=== PATIENT | female | born 1940 | race Hispanic/Latino ===

== ENCOUNTER 2017-03-03 16:55 | Inpatient (IN) | payer MEDICARE ==
[2017-03-03 23:12] VITALS: BMI 29.8
--- NOTE | 2017-03-04 00:19 | CP.PCM.HP ---
History of Present Illness - History of Present Illness History of Present Illness: PCP: Dr. Mahmood Orthopedist: Pj Mays MD Chief Complaint: Painful Right Total Hip Replacement HPI: 77 years old female with hx of CAD with stent, DM II, PVD and Degenerative joint disease of the right hip was sent to the [facility] for Physical therapy and continued care. She was admitted at the [facility] on 03/01/17 for an elective Right THR. She tolerated this well and on 03/03/17 was transferred for continue of care. She referred moderate to severe pain to the right hip on mobilization. no fever, chills, Chest pain nor Sob. No nausea nor vomiting. PMH: DM II, HTN; CAD with stent placement 2014; Hypothyroidism; PVD s/p left iliac stent; Dizziness; Shingles; Degenerative joint disease of the right hip; Arthritis; Bulging lumbar disc, Anemia PSH: Right Total Hip replacement 02/2017 SH: former smoker; occasional Alcohol; No illegal drug use; Live alone FH: States, no known familh Hx Allergies: Lisinopril Present on Admission - Present on Admission Any Indicators Present on Admission: No History of DVT/PE: No History of Uncontrolled Diabetes: No Urinary Catheter: No Decubitus Ulcer Present: No Review of Systems - Constitutional Constitutional: absent: Anorexia, Chills, Fatigue, Fever - EENT Eyes: Requires Corrective Lenses. absent: Diplopia, Floaters, Sees Flashes Ears: absent: Decreased Hearing, Ear Discharge, Ear Pain, Tinnitus Nose/Mouth/Throat: absent: Epistaxis, Nasal Congestion, Nasal Discharge, Sinus Pain, Sinus Pressure - Cardiovascular Cardiovascular: absent: Chest Pain, Dyspnea, Edema, Palpitations - Respiratory Respiratory: absent: Cough, Dyspnea, Wheezing, Stridor - Gastrointestinal Gastrointestinal: absent: Abdominal Pain, Constipation, Diarrhea, Nausea, Vomiting - Genitourinary Genitourinary: absent: Dysuria, Flank Pain, Hematuria, Urinary Frequency - Musculoskeletal Musculoskeletal: Arthralgias. absent: Muscle Weakness, Myalgias - Integumentary Integumentary: absent: Pruritus, Rash, Skin Ulcer, Sores, Striae Additional comments: Right hip surgical wound - Neurological Neurological: absent: Confusion, Dizziness, Focal Weakness, Headaches, Weakness - Psychiatric Psychiatric: absent: Anxiety, Depression, Panic Attacks - Endocrine Endocrine: absent: Palpitations, Polydipsia, Polyphagia, Polyuria - Hematologic/Lymphatic Hematologic: absent: Easy Bleeding, Easy Bruising Past Patient History - Infectious Disease Hx of Infectious Diseases: None - Past Medical History & Family History Past Medical History?: Yes - Past Social History Smoking Status: Former Smoker Chewing Tobacco Use: No Cigar Use: No Alcohol: Social Drugs: Denies Home Situation {Lives}: Alone - CARDIAC Hx Cardiac Disorders: Yes (cad stents) Hx Hypertension: Yes - PULMONARY Hx Respiratory Disorders: No - NEUROLOGICAL Hx Neurological Disorder: Yes (numbness bilat hands) Hx Dizziness: Yes Hx Paralysis: No - HEENT Hx HEENT Problems: Yes (macular degeneration) - RENAL Hx Chronic Kidney Disease: No - ENDOCRINE/METABOLIC Hx Diabetes Mellitus Type 2: Yes Hx Hypothyroidism: Yes - HEMATOLOGICAL/ONCOLOGICAL Hx Blood Disorders: Yes Hx Anemia: Yes Hx Blood Transfusions: No Hx Shingles: Yes - INTEGUMENTARY Hx Dermatological Problems: No - MUSCULOSKELETAL/RHEUMATOLOGICAL Hx Arthritis: Yes Hx Falls: No - GASTROINTESTINAL Hx Gastrointestinal Disorders: Yes (occ diarrhea) - GENITOURINARY/GYNECOLOGICAL Hx Genitourinary Disorders: No - PSYCHIATRIC Hx Psychophysiologic Disorder: No Hx Substance Use: No - SURGICAL HISTORY Hx Surgeries: Yes Hx Angioplasty: Yes (2014 left iliac 2014) Hx Cardiac Catheterization: Yes (c/ stents) Hx Coronary Stent: Yes (2014) Other/Comment: heart stents - ANESTHESIA Hx Anesthesia: Yes Hx Anesthesia Reactions: No Hx Malignant Hyperthermia: No Meds Allergies/Adverse Reactions: Allergies Allergy/AdvReac Type Severity Reaction Status Date / Time lisinopril Allergy Severe ANAPHYLAXIS Verified 03/01/17 10:02 Physical Exam - Constitutional Appears: No Acute Distress - Head Exam Head Exam: ATRAUMATIC, NORMAL INSPECTION, NORMOCEPHALIC - Eye Exam Eye Exam: EOMI, Normal appearance Pupil Exam: PERRL - ENT Exam ENT Exam: Mucous Membranes Moist, Normal Exam, Normal External Ear Exam, Normal Oropharynx - Neck Exam Neck exam: Positive for: Full Rom, Normal Inspection. Negative for: Lymphadenopathy, Tenderness - Respiratory Exam Respiratory Exam: Clear to Auscultation Bilateral. absent: Rales, Rhonchi, Wheezes - Cardiovascular Exam Cardiovascular Exam: REGULAR RHYTHM, RRR, +S1, +S2. absent: Gallop, JVD - GI/Abdominal Exam GI & Abdominal Exam: Normal Bowel Sounds, Soft. absent: Mass, Tenderness - Rectal Exam Rectal Exam: Deferred - Extremities Exam Extremities exam: Positive for: normal inspection. Negative for: tenderness Additional comments: lateral right hip with post surgical dressing clean anddry. - Back Exam Back exam: NORMAL INSPECTION. absent: CVA tenderness (L), CVA tenderness (R) - Neurological Exam Neurological exam: Alert, CN II-XII Intact, Oriented x3, Reflexes Normal - Psychiatric Exam Psychiatric exam: Normal Affect, Normal Mood - Skin Skin Exam: Dry, Intact, Normal Color, Warm Results - Labs Labs: 03/02/17 Hb 8.7 Ht 26 WBC 6.7 03/03/17 Creatinine 1.3 BUN 25 Sodium 125 Potassium3.7 Assessment & Plan - Assessment and Plan (Free Text) Assessment: #.Degenerative Joint Disease s/p R THR #. Acute Blood Loss anemia #. DM II with hyperglucemia #. Hypothyroidism #. HTN #.Dehydration. Plan: 77 years old female with hx of CAD with stent, DM II, PVD and Degenerative joint disease of the right hip s/p Right THR was sent to the [facility] from [facility] for Physical therapy and continued care. #.Degenerative Joint Disease s/p R THR - Consult Dr Ortega -PT/OT -Wound care nurse consult #. Acute Blood Loss anemia - TIBC 422; Fe 27 - Ferrous Sulfate TID - follow Hb #. DM II with hyperglycemia -Regular Insulin sliding scale according to accucheck - Levemir/ Metformin/ Glipizide - HbA1c 8.2 #. Hypothyroidism - Levothyroxin - TSH 0.51 #. HTN - Metoprolol/Amlodipin/ hold HCTZ - Vital Signs #.Dehydration. - Hold HCTZ #. DVT prophylaxis with SCD and Lovenox #. Code Status: Full - Date & Time Date: 03/04/17 Time: 00:19
[2017-03-04] MEDS ORDERED: Enoxaparin 40 mg Syringe SC SCH (02:00)
[2017-03-04 05:30] LABS: BASO # 0.1 K/uL (0.0-0.2); BASO % 0.7 % (0.0-2.0); EOS % 0.4 % (0.0-4.0); HEMATOCRIT 29.2 % (34.0-47.0); LYMPH # 1.5 K/uL (1.0-4.3); MEAN CELL VOLUME 84.3 fl (81.0-99.0); MEAN CORPUSCULAR HEMOGLOBIN 27.2 pg (27.0-31.0); MEAN CORPUSCULAR HGB CONC 32.2 g/dL (33.0-37.0); MEAN PLATELET VOLUME 8.5 fl (7.2-11.7); MONO # 0.8 K/uL (0.0-0.8); MONO % 10.5 % (0.0-10.0); NEUT # 5.2 K/uL (1.8-7.0); NEUT % 68.4 % (50.0-75.0); RED CELL DISTRIBUTION WIDTH 15.3 % (11.5-14.5); WHITE BLOOD COUNT 7.6 K/uL (4.8-10.8)
[2017-03-04 05:41] LABS: CALCIUM 8.5 mg/dL (8.4-10.2); POTASSIUM 3.8 MMOL/L (3.6-5.0)
[2017-03-04] MEDS: Levothyroxine 125 MCG TAB PO SCH (06:16)
[2017-03-04] MEDS: Enoxaparin 40 mg Syringe SC SCH (08:25)
[2017-03-04] MEDS: Metoprolol Succinate 50 mg XL Tab PO SCH ×2 (08:25→17:29)
[2017-03-04] MEDS: Insulin Regular 100 units/ml SC SCH ×4 (08:26→21:25)
[2017-03-04] MEDS: Oxycodone/Acetaminophen 5/325 mg Tab PO PRN ×2 (08:31→16:14)
[2017-03-04] MEDS ORDERED: Influenza Vaccine 18yr & older 0.5 ML/45 MCG SYR IM ONE (09:00)
[2017-03-04] MEDS: Insulin Detemir 100 Units/ml Inj SC SCH (21:39)
[2017-03-05] MEDS: Levothyroxine 125 MCG TAB PO SCH (06:21)
[2017-03-05] MEDS: Insulin Regular 100 units/ml SC SCH ×4 (06:56→21:38)
[2017-03-05] MEDS: Metoprolol Succinate 50 mg XL Tab PO SCH ×2 (09:07→17:09)
[2017-03-05] MEDS: Enoxaparin 40 mg Syringe SC SCH (09:09)
[2017-03-05] MEDS: Oxycodone/Acetaminophen 5/325 mg Tab PO PRN ×3 (09:15→21:44)
--- NOTE | 2017-03-05 16:57 | CP.PCM.CON ---
History of Present Illness - History of Present Illness History of Present Illness: Dr Ortega PMR consultation on Natalie Cote, born 1940, who has been admitted to [facility] for PREETI following an elective right THR. Performed at [facility]. Post op doing well. She is sleepy right now, but notes that pain is controlled. Getting ice to the hip now. Review of Systems - Constitutional Constitutional: Daytime Sleepiness. absent: Anorexia, Chills - EENT Eyes: absent: Change in Vision Ears: absent: Decreased Hearing Nose/Mouth/Throat: absent: Nasal Congestion - Cardiovascular Cardiovascular: absent: Chest Pain - Respiratory Respiratory: absent: Cough, Dyspnea - Gastrointestinal Gastrointestinal: absent: Abdominal Pain - Musculoskeletal Musculoskeletal: absent: Muscle Cramps - Integumentary Integumentary: absent: Bleeding Lesions (right hip incision covered ) - Neurological Neurological: absent: Abnormal Hearing, Abnormal Movements - Psychiatric Psychiatric: absent: Anxiety Past Patient History - Infectious Disease Hx of Infectious Diseases: None - Past Medical History & Family History Past Medical History?: Yes - Past Social History Smoking Status: Former Smoker Chewing Tobacco Use: No Cigar Use: No Alcohol: Social Drugs: Denies Home Situation {Lives}: Alone (ground floor) - CARDIAC Hx Cardiac Disorders: Yes (cad stents) Hx Hypertension: Yes - PULMONARY Hx Respiratory Disorders: No - NEUROLOGICAL Hx Neurological Disorder: Yes (numbness bilat hands) Hx Dizziness: Yes Hx Paralysis: No - HEENT Hx HEENT Problems: Yes (macular degeneration) - RENAL Hx Chronic Kidney Disease: No - ENDOCRINE/METABOLIC Hx Diabetes Mellitus Type 2: Yes Hx Hypothyroidism: Yes - HEMATOLOGICAL/ONCOLOGICAL Hx Blood Disorders: Yes Hx Anemia: Yes Hx Blood Transfusions: No Hx Shingles: Yes - INTEGUMENTARY Hx Dermatological Problems: No - MUSCULOSKELETAL/RHEUMATOLOGICAL Hx Arthritis: Yes Hx Falls: No - GASTROINTESTINAL Hx Gastrointestinal Disorders: Yes (occ diarrhea) - GENITOURINARY/GYNECOLOGICAL Hx Genitourinary Disorders: No - PSYCHIATRIC Hx Psychophysiologic Disorder: No Hx Substance Use: No - SURGICAL HISTORY Hx Surgeries: Yes Hx Angioplasty: Yes (2014 left iliac 2014) Hx Cardiac Catheterization: Yes (c/ stents) Hx Coronary Stent: Yes (2014) Other/Comment: heart stents - ANESTHESIA Hx Anesthesia: Yes Hx Anesthesia Reactions: No Hx Malignant Hyperthermia: No Meds Allergies/Adverse Reactions: Allergies Allergy/AdvReac Type Severity Reaction Status Date / Time lisinopril Allergy Severe ANAPHYLAXIS Verified 03/01/17 10:02 - Medications Medications: Current Medications Acetaminophen (Tylenol 325mg Tab) 650 mg PO Q4 PRN PRN Reason: for pain level 3-6 Amlodipine Besylate (Norvasc) 5 mg PO DAILY [facility] Last Admin: 03/05/17 09:08 Dose: 5 mg Docusate Sodium (Colace) 100 mg PO BID [facility] Last Admin: 03/05/17 09:05 Dose: 100 mg Enoxaparin Sodium (Lovenox) 40 mg SC DAILY [facility] PRN Reason: Protocol Last Admin: 03/05/17 09:09 Dose: 40 mg Gabapentin (Neurontin) 300 mg PO BID [facility] Last Admin: 03/05/17 09:06 Dose: 300 mg Glipizide (Glucotrol) 5 mg PO BID@0730,1700 [facility] Last Admin: 03/05/17 06:58 Dose: 5 mg Hydrochlorothiazide (Hydrodiuril) 25 mg PO DAILY [facility] Last Admin: 03/04/17 08:25 Dose: 25 mg Insulin Detemir (Levemir) 40 units SC [facility] Last Admin: 03/04/17 21:39 Dose: 40 units Insulin Human Regular (Humulin R) 0 units SC [facility] PRN Reason: Protocol Last Admin: 03/05/17 16:23 Dose: Not Given Isosorbide Mononitrate (Imdur) 60 mg PO QAM [facility] Last Admin: 03/05/17 09:09 Dose: 60 mg Levothyroxine Sodium (Synthroid) 125 mcg PO DAILY@0630 [facility] Last Admin: 03/05/17 06:21 Dose: 125 mcg Metformin HCl (Glucophage) 500 mg PO BID@0800,1700 [facility] Last Admin: 03/05/17 09:06 Dose: 500 mg Metoprolol Succinate (Toprol Xl) 50 mg PO BID [facility] Last Admin: 03/05/17 09:07 Dose: 50 mg Nitroglycerin (Nitrostat Sl Tab) 0.4 mg SL DAILY PRN PRN Reason: Heart rate Oxycodone/Acetaminophen (Percocet 5/325 Mg Tab) 1 tab PO Q4 PRN PRN Reason: for pain level 7-10 Stop: 03/07/17 01:51 Last Admin: 03/05/17 13:11 Dose: 1 tab Physical Exam - Constitutional Appears: Non-toxic, No Acute Distress - Head Exam Head Exam: ATRAUMATIC, NORMAL INSPECTION, NORMOCEPHALIC - Eye Exam Eye Exam: EOMI - ENT Exam ENT Exam: Mucous Membranes Moist - Respiratory Exam Respiratory Exam: NORMAL BREATHING PATTERN - Cardiovascular Exam Cardiovascular Exam: REGULAR RHYTHM - GI/Abdominal Exam GI & Abdominal Exam: absent: Firm - Extremities Exam Extremities exam: Negative for: calf tenderness, pedal edema - Neurological Exam Neurological exam: Alert, CN II-XII Intact, Oriented x3 - Psychiatric Exam Psychiatric exam: Normal Affect, Normal Mood - Skin Skin Exam: Dry Results - Vital Signs Recent Vital Signs: Last Vital Signs Temp 98.1 F 03/05/17 16:14 Pulse 75 03/05/17 16:14 Resp 20 03/05/17 16:14 BP 123/54 L 03/05/17 16:14 Pulse Ox 97 03/05/17 16:14 - Labs Result Diagrams: 03/04/17 05:00 03/04/17 05:00 Labs: Laboratory Results - last 24 hr 03/04/17 03/05/17 03/05/17 20:52 06:19 11:04 POC Glucose (mg/dL) 212 H 118 H 217 H 03/05/17 16:03 POC Glucose (mg/dL) 143 H Assessment & Plan - Assessment and Plan (Free Text) Assessment: s/p right THR POD #2 PT/OT to continue to help increase functional independence Pain: controlled Vascular: no evidence of DVT GI: No evidence of constipation or diarrhea Patient continues to be an excellent TCU rehabilitation candidate and will have continued focused PT, OT and recreational therapy to help facilitate a safe and appropriate d/c plan
[2017-03-05] MEDS: Insulin Detemir 100 Units/ml Inj SC SCH (21:39)
[2017-03-06] MEDS: Oxycodone/Acetaminophen 5/325 mg Tab PO PRN ×4 (04:50→22:41)
[2017-03-06] MEDS: Insulin Regular 100 units/ml SC SCH ×4 (06:34→22:31)
[2017-03-06] MEDS: Levothyroxine 125 MCG TAB PO SCH (06:35)
[2017-03-06] MEDS: Enoxaparin 40 mg Syringe SC SCH (08:36)
[2017-03-06] MEDS: Metoprolol Succinate 50 mg XL Tab PO SCH ×2 (08:37→16:56)
--- NOTE | 2017-03-06 15:31 | HP ---
HISTORY OF PRESENT ILLNESS: This is a 77-year-old female with history of multiple medical problems was admitted to transitional care unit for physical therapy and rehabilitation after total hip replacement. The patient did not have any shortness of breath or chest pain. The patient has pain at the site of the surgery, which is secondary to the surgery, appropriate for the postoperative pain. REVIEW OF SYSTEMS: Negative. ALLERGIES: NO KNOWN ALLERGIES. MEDICATIONS: Metformin 500 mg twice a day, glipizide 5 mg twice a day, hydrochlorothiazide 25 mg daily, Imdur 60 mg daily, Levemir 40 units q.h.s., Lovenox 40 mg subcutaneous q.h.s., gabapentin 300 mg twice a day, Nitrostat 0.4 mg sublingual as needed, amlodipine 5 mg daily, Levothyroxine 125 mcg daily, and metoprolol 50 mg twice a day. PAST MEDICAL HISTORY: Hypertension, hypothyroidism, type II diabetes mellitus, and osteoarthritis. SOCIAL HISTORY: No history of smoking, ETOH, or substance abuse. FAMILY HISTORY: Noncontributory. PHYSICAL EXAMINATION GENERAL: The patient is in bed comfortable, not in any cardiopulmonary distress. VITAL SIGNS: Blood pressure 144/63, temperature 98.2, respiratory rate 20, and pulse 84. HEENT: Pupils are equal reactive to light. Normal appearing mucosa of the conjunctiva, oropharynx, and nasal membrane mucosa. NECK: Supple. No JVD. No carotid bruits. No lymph node. No thyromegaly. CHEST AND LUNGS: Bilateral symmetrical expansion. Good air exchange. No rales. No rhonchi. CARDIOVASCULAR SYSTEM: PMI not localized. S1 and S2. No additional sounds. ABDOMEN: Normoactive bowel sounds. No tenderness. No organomegaly. No masses. EXTREMITIES: No cyanosis. No clubbing. No edema. CENTRAL NERVOUS SYSTEM: Alert, awake, and oriented x3. No neurological deficits could be appreciated. ASSESSMENT: 1. Status post right total hip replacement. 2. Hypertension. 3. Type II diabetes mellitus. 4. Hypothyroidism. PLAN: Continue physical therapy and occupational therapy. Resume the patient's medications, DVT prophylaxis, and Accu-Chek for insulin coverage. Lynn Philippe MD [facility] # [id number]
[2017-03-06] MEDS: Insulin Detemir 100 Units/ml Inj SC SCH (22:32)
[2017-03-07] MEDS: Levothyroxine 125 MCG TAB PO SCH (07:20)
[2017-03-07] MEDS: Insulin Regular 100 units/ml SC SCH ×4 (07:40→21:34)
[2017-03-07] MEDS: Oxycodone/Acetaminophen 5/325 mg Tab PO PRN ×3 (07:42→16:42)
[2017-03-07] MEDS: Enoxaparin 40 mg Syringe SC SCH (08:37)
[2017-03-07] MEDS: Metoprolol Succinate 50 mg XL Tab PO SCH ×2 (08:38→16:43)
[2017-03-07] MEDS: Insulin Detemir 100 Units/ml Inj SC SCH (21:34)
--- NOTE | 2017-03-07 23:22 | PN ---
DAILY PROGRESS NOTE DATE: 03/07/2017 SUBJECTIVE: The patient is seen today 03/07/2017. She is cooperative to physical therapy and occupational therapy. PHYSICAL EXAMINATION: VITAL SIGNS: Blood pressure is 132/66, temperature 98.2, respiratory rate 20, and pulse 88. HEENT: Pupils equal, reactive to light. Normal-appearing mucosa of the conjunctivae, oropharynx, and nasal membrane mucosa. NECK: Supple. JVD. No carotid bruit. No lymph node. No thyromegaly. CHEST AND LUNGS: Bilateral symmetrical expansion. Good air exchange. No rales. No rhonchi. CARDIOVASCULAR SYSTEM: PMI not localized. S1, S2. No additional sounds. ABDOMEN: Normoactive bowel sounds. No tenderness. No organomegaly. No masses. EXTREMITIES: No cyanosis. No clubbing. No edema. CENTRAL NERVOUS SYSTEM: Alert, awake, oriented x3. No neurological deficits could be appreciated. ASSESSMENT: 1. Status post right total hip replacement. 2. Type 2 diabetes mellitus. 3. Hypertension. 4. Hypothyroidism. PLAN: Continue current medications and continue physical therapy and occupational therapy. Continue DVT prophylaxis. Andres MD Jose Martin
[2017-03-08] MEDS: Oxycodone/Acetaminophen 5/325 mg Tab PO PRN ×3 (05:50→21:36)
[2017-03-08] MEDS: Insulin Regular 100 units/ml SC SCH ×4 (06:48→21:34)
[2017-03-08] MEDS: Levothyroxine 125 MCG TAB PO SCH (06:48)
[2017-03-08] MEDS: Metoprolol Succinate 50 mg XL Tab PO SCH ×2 (08:12→16:18)
[2017-03-08] MEDS: Insulin Detemir 100 Units/ml Inj SC SCH (21:33)
[2017-03-09 06:06] LABS: BASO % 0.8 % (0.0-2.0); EOS # 0.1 K/uL (0.0-0.7); EOS % 1.7 % (0.0-4.0); HEMATOCRIT 26.4 % (34.0-47.0); LYMPH # 1.9 K/uL (1.0-4.3); LYMPH % 31.1 % (20.0-40.0); MEAN CELL VOLUME 84.7 fl (81.0-99.0); MEAN CORPUSCULAR HEMOGLOBIN 27.9 pg (27.0-31.0); MEAN CORPUSCULAR HGB CONC 32.9 g/dL (33.0-37.0); MEAN PLATELET VOLUME 7.8 fl (7.2-11.7); MONO # 0.6 K/uL (0.0-0.8); MONO % 10.3 % (0.0-10.0); NEUT # 3.4 K/uL (1.8-7.0); NEUT % 56.1 % (50.0-75.0); RED CELL DISTRIBUTION WIDTH 14.9 % (11.5-14.5)
[2017-03-09 06:29] LABS: ALB/GLOB RATIO 0.9 (1.0-2.1); ALKALINE PHOSPHATASE 105 U/L (38-126); ALT/SGPT 24 U/L (9-52); AST/SGOT 31 U/L (14-36); BILIRUBIN,TOTAL < 0.1 mg/dl (0.2-1.3); BLOOD UREA NITROGEN 33 mg/dl (7-17); CALCIUM 9.3 mg/dL (8.4-10.2); CARBON DIOXIDE 24 mmol/L (22-30); CHLORIDE 106 mmol/L (98-107); GFR AFRICAN-AMERICAN > 60; GLUCOSE,RANDOM 71 mg/dL (65-105); POTASSIUM 4.7 MMOL/L (3.6-5.0); SODIUM 139 mmol/l (132-148); TOTAL PROTEIN 6.1 G/DL (6.3-8.2)
[2017-03-09] MEDS: Levothyroxine 125 MCG TAB PO SCH (06:52)
[2017-03-09] MEDS: Insulin Regular 100 units/ml SC SCH ×4 (06:57→21:41)
[2017-03-09] MEDS: Metoprolol Succinate 50 mg XL Tab PO SCH ×2 (08:51→16:03)
[2017-03-09] MEDS: Oxycodone/Acetaminophen 5/325 mg Tab PO PRN ×3 (09:50→21:33)
--- NOTE | 2017-03-09 17:26 | CP.PCM.PN ---
Subjective - Date & Time of Evaluation Date of Evaluation: 03/09/17 Time of Evaluation: 17:25 - Subjective Subjective: s/p right THR doing ok in therapy ambulating 75' with RW denies numbness or CP continue with current care Objective - Vital Signs/Intake and Output Vital Signs (last 24 hours): Temp Pulse Resp BP Pulse Ox 98.2 F 83 20 149/72 98 03/09/17 16:25 03/09/17 16:25 03/09/17 16:25 03/09/17 16:25 03/09/17 16:25 - Medications Medications: Current Medications Acetaminophen (Tylenol 325mg Tab) 650 mg PO Q4 PRN PRN Reason: for pain level 3-6 Amlodipine Besylate (Norvasc) 5 mg PO DAILY [facility] Last Admin: 03/09/17 08:51 Dose: 5 mg Docusate Sodium (Colace) 100 mg PO BID [facility] Last Admin: 03/09/17 16:03 Dose: 100 mg Enoxaparin Sodium (Lovenox) 40 mg SC DAILY [facility] PRN Reason: Protocol Gabapentin (Neurontin) 300 mg PO BID [facility] Last Admin: 03/09/17 16:03 Dose: 300 mg Glipizide (Glucotrol) 5 mg PO BID@0730,1700 [facility] Last Admin: 03/09/17 16:03 Dose: 5 mg Hydrochlorothiazide (Hydrodiuril) 25 mg PO DAILY [facility] Last Admin: 03/04/17 08:25 Dose: 25 mg Insulin Detemir (Levemir) 40 units SC HS [facility] Last Admin: 03/08/17 21:33 Dose: 40 units Insulin Human Regular (Humulin R) 0 units SC ACHS [facility] PRN Reason: Protocol Last Admin: 03/09/17 16:10 Dose: 1 units Isosorbide Mononitrate (Imdur) 60 mg PO QAM [facility] Last Admin: 03/09/17 08:50 Dose: 60 mg Levothyroxine Sodium (Synthroid) 125 mcg PO DAILY@0630 [facility] Last Admin: 03/09/17 06:52 Dose: 125 mcg Metformin HCl (Glucophage) 500 mg PO BID@0800,1700 [facility] Last Admin: 03/09/17 16:03 Dose: 500 mg Metoprolol Succinate (Toprol Xl) 50 mg PO BID [facility] Last Admin: 03/09/17 16:03 Dose: 50 mg Nitroglycerin (Nitrostat Sl Tab) 0.4 mg SL DAILY PRN PRN Reason: Heart rate Oxycodone/Acetaminophen (Percocet 5/325 Mg Tab) 1 tab PO Q4 PRN PRN Reason: Pain, severe (8-10) Stop: 03/10/17 07:31 Last Admin: 03/09/17 13:22 Dose: 1 tab - Labs Labs: 03/09/17 04:00 03/09/17 04:00 PT 12.5 Seconds (9.8-13.1) 03/04/17 06:00 INR 1.2 (0.9-1.2) 03/04/17 06:00 APTT 30.1 Seconds (25.6-37.1) 03/04/17 05:00
[2017-03-09] MEDS: Insulin Detemir 100 Units/ml Inj SC SCH (21:34)
[2017-03-10] MEDS: Levothyroxine 125 MCG TAB PO SCH (05:46)
[2017-03-10] MEDS: Insulin Regular 100 units/ml SC SCH ×4 (06:36→22:07)
--- NOTE | 2017-03-10 08:35 | PN ---
DATE: 03/08/2017 SUBJECTIVE: The patient seen today. She is cooperative to surgical therapy and occupational therapy. PHYSICAL EXAMINATION GENERAL: Text. VITAL SIGNS: Blood pressure 133/54, temperature 97.9, respiratory rate 20, and pulse 83. HEENT: Pupils equal and reactive to light. Normal-appearing mucosa of the conjunctiva, oropharynx and nasal membrane mucosa. NECK: Supple. No JVD. No carotid bruits. No lymph node. No thyromegaly. CHEST AND LUNGS: Bilateral symmetrical expansion. Good air exchange. No rales. No rhonchi. CARDIOVASCULAR SYSTEM: PMI not localized. S1 and S2. No additional sounds. ABDOMEN: Normoactive bowel sounds. No tenderness. No organomegaly. No masses. EXTREMITIES: No cyanosis. No clubbing. No edema. CENTRAL NERVOUS SYSTEM: Alert, awake, and oriented x2. No neurological deficits could be appreciated. ASSESSMENT: 1. Status post right total hip replacement. 2. Hypertension. 3. Type II diabetes mellitus. 4. Hypothyroidism. 5. Osteoarthritis. PLAN: We will continue Accu-Chek with insulin coverage as needed and check blood work in the morning. Lynn Philippe MD
[2017-03-10] MEDS: Oxycodone/Acetaminophen 5/325 mg Tab PO PRN ×2 (08:47→18:13)
[2017-03-10] MEDS: Enoxaparin 40 mg Syringe SC SCH (08:47)
[2017-03-10] MEDS: Metoprolol Succinate 50 mg XL Tab PO SCH ×2 (08:48→16:48)
[2017-03-10 21:14] VITALS: RESP 20
[2017-03-10] MEDS: Insulin Detemir 100 Units/ml Inj SC SCH (22:08)
--- NOTE | 2017-03-11 03:17 | PN ---
DATE: 03/10/2017 SUBJECTIVE: The patient is seen today in Transitional Care Unit. She looks pale, but there is no respiratory distress. PHYSICAL EXAMINATION: VITAL SIGNS: Blood pressure 120/70, temperature 98.4, respiratory rate 16, and pulse is 76. HEENT: Pupils are equal and reactive to light. Normal-appearing mucosa of the conjunctivae, oropharyngeal and nasal membrane mucosa. NECK: Supple. No JVD. No carotid bruit. No lymph node. No thyromegaly. CHEST AND LUNGS: Bilateral symmetrical expansion. Good air exchange. No rales. No rhonchi. CARDIOVASCULAR SYSTEM: PMI not localized. S1 and S2. No additional sounds. ABDOMEN: Normoactive bowel sounds. No tenderness. No organomegaly. No masses. EXTREMITIES: No cyanosis. No clubbing. No edema. GRIND OPERATOR: Alert, awake and oriented x3. No neurological deficits could be appreciated. ASSESSMENT: 1. Status post right total hip replacement. 2. Anemia from acute blood loss. 3. Hypertension. 4. Hypothyroidism. PLAN: Continue current medications, and we added ferrous sulphate 325 mg twice a day and vitamin C 500 mg once a day. Lynn Philippe MD
[2017-03-11] MEDS: Insulin Regular 100 units/ml SC SCH ×4 (07:00→21:29)
[2017-03-11] MEDS: Levothyroxine 125 MCG TAB PO SCH (07:01)
[2017-03-11] MEDS: Metoprolol Succinate 50 mg XL Tab PO SCH ×2 (09:29→17:26)
[2017-03-11] MEDS: Enoxaparin 40 mg Syringe SC SCH (09:30)
[2017-03-11] MEDS: Oxycodone/Acetaminophen 5/325 mg Tab PO PRN ×3 (09:32→21:41)
[2017-03-11] MEDS: Insulin Detemir 100 Units/ml Inj SC SCH (21:31)
[2017-03-12] MEDS: Insulin Regular 100 units/ml SC SCH ×4 (07:06→21:30)
[2017-03-12] MEDS: Levothyroxine 125 MCG TAB PO SCH (07:07)
[2017-03-12] MEDS: Enoxaparin 40 mg Syringe SC SCH (09:23)
[2017-03-12] MEDS: Metoprolol Succinate 50 mg XL Tab PO SCH ×2 (09:24→17:47)
[2017-03-12] MEDS: Oxycodone/Acetaminophen 5/325 mg Tab PO PRN ×3 (09:30→21:31)
[2017-03-12] MEDS: Insulin Detemir 100 Units/ml Inj SC SCH (21:29)
[2017-03-13] MEDS: Oxycodone/Acetaminophen 5/325 mg Tab PO PRN (01:13)
[2017-03-13] MEDS: Levothyroxine 125 MCG TAB PO SCH (06:26)
[2017-03-13] MEDS: Insulin Regular 100 units/ml SC SCH ×4 (06:32→21:57)
[2017-03-13] MEDS: Enoxaparin 40 mg Syringe SC SCH (08:57)
[2017-03-13] MEDS: Metoprolol Succinate 50 mg XL Tab PO SCH ×2 (08:58→16:16)
[2017-03-13] MEDS: Insulin Detemir 100 Units/ml Inj SC SCH (21:58)
[2017-03-14] MEDS: Oxycodone/Acetaminophen 5/325 mg Tab PO PRN ×2 (00:45→10:44)
[2017-03-14] MEDS: Levothyroxine 125 MCG TAB PO SCH (05:56)
[2017-03-14] MEDS: Insulin Regular 100 units/ml SC SCH ×4 (06:29→21:36)
--- NOTE | 2017-03-14 09:20 | PN ---
DATE: 03/12/2017 SUBJECTIVE: The patient is seen today on 03/12/2017. She is not in any cardiopulmonary distress. The patient is cooperative to Physical Therapy and Occupational Therapy. PHYSICAL EXAMINATION VITAL SIGNS: Blood pressure 116/63, temperature 98.2, respiratory rate 20, and pulse 78. HEENT: Pupils are equal and reactive to light. Normal-appearing mucosa of the conjunctivae, oropharyngeal and nasal membrane mucosa. NECK: Supple. No JVD. No carotid bruit. No lymph node. No thyromegaly. CHEST AND LUNGS: Bilateral symmetrical expansion. Good air exchange. No rales. No rhonchi. CARDIOVASCULAR: PMI not localized. S1 and S2. No additional sounds. ABDOMEN: Normoactive bowel sounds. No tenderness. No organomegaly. No masses. EXTREMITIES: No cyanosis. No clubbing. No edema. CENTRAL NERVOUS SYSTEM: Alert, awake, and oriented x3. No neurological deficits could be appreciated. ASSESSMENT: 1. Status post right total hip replacement. 2. Hypertension. 3. Type 2 diabetes. 4. Osteoarthritis. PLAN: Continue current medications and Physical Therapy. We will supplement iron and vitamin C for the anemia of acute blood loss. Lynn Philippe MD
[2017-03-14] MEDS: Enoxaparin 40 mg Syringe SC SCH (09:31)
[2017-03-14] MEDS: Metoprolol Succinate 50 mg XL Tab PO SCH ×2 (09:32→16:30)
--- NOTE | 2017-03-14 20:34 | PN ---
DATE: 03/14/2017 SUBJECTIVE: She is cooperative to physical therapy and occupational therapy. OBJECTIVE: VITAL SIGNS: Blood pressure 146/64, temperature 98.1, respiratory rate 20, and pulse 69. HEENT: Slightly pale mucosa of the conjunctivae. NECK: Supple. No JVD. No carotid bruit noted. No thyromegaly. CHEST AND LUNGS: Bilateral symmetrical expansion. Good air exchange. No rales, no rhonchi. CARDIOVASCULAR: PMI not localized. S1, S2. No additional sounds. ABDOMEN: Normoactive bowel sounds. No tenderness. No organomegaly. No masses. EXTREMITIES: No cyanosis, no clubbing, no edema. CENTRAL NERVOUS SYSTEM: Alert and oriented x3. No neurological deficit could be appreciated. ASSESSMENT 1. Status post right total hip replacement. 2. Anemia of acute blood loss. 3. Hypertension. 4. Type 2 diabetes mellitus. PLAN: Continue current medications and iron supplement and monitor the hemoglobin and hematocrit. Lynn Philippe MD
[2017-03-14] MEDS: Insulin Detemir 100 Units/ml Inj SC SCH (21:40)
[2017-03-15 05:51] LABS: BASO % 0.6 % (0.0-2.0); EOS # 0.1 K/uL (0.0-0.7); LYMPH % 29.9 % (20.0-40.0); MEAN CELL VOLUME 84.7 fl (81.0-99.0); MEAN CORPUSCULAR HEMOGLOBIN 28.1 pg (27.0-31.0); MEAN CORPUSCULAR HGB CONC 33.2 g/dL (33.0-37.0); MEAN PLATELET VOLUME 7.5 fl (7.2-11.7); MONO # 0.5 K/uL (0.0-0.8); MONO % 8.2 % (0.0-10.0); NEUT % 60.3 % (50.0-75.0); RED CELL DISTRIBUTION WIDTH 15.2 % (11.5-14.5); WHITE BLOOD COUNT 6.6 K/uL (4.8-10.8)
[2017-03-15] MEDS: Insulin Regular 100 units/ml SC SCH (06:43)
[2017-03-15] MEDS: Levothyroxine 125 MCG TAB PO SCH (06:44)
[2017-03-15 06:58] LABS: BLOOD UREA NITROGEN 24 mg/dl (7-17); CALCIUM 9.1 mg/dL (8.4-10.2); CARBON DIOXIDE 24 mmol/L (22-30); CHLORIDE 108 mmol/L (98-107); GFR AFRICAN-AMERICAN > 60; GLUCOSE,RANDOM 112 mg/dL (65-105); POTASSIUM 4.9 MMOL/L (3.6-5.0); SODIUM 141 mmol/l (132-148)
[2017-03-15 06:59] LABS: ALB/GLOB RATIO 0.9 (1.0-2.1); ALKALINE PHOSPHATASE 111 U/L (38-126); ALT/SGPT 27 U/L (9-52); AST/SGOT 19 U/L (14-36); BILIRUBIN,TOTAL < 0.1 mg/dl (0.2-1.3)
[2017-03-15 08:03] VITALS: TEMP 98.1; O2SAT 96
[2017-03-15] MEDS: Oxycodone/Acetaminophen 5/325 mg Tab PO PRN (08:12)
[2017-03-15] MEDS: Enoxaparin 40 mg Syringe SC SCH (08:13)
[2017-03-15] MEDS: Metoprolol Succinate 50 mg XL Tab PO SCH (08:14)
[2017-03-15 08:15] VITALS: BP 180/83
[2017-03-15 08:21] VITALS: PULSE 79
[2017-03-15] MEDS ORDERED: Povidone Iodine Topical 10% Sol ONE (09:52)
--- NOTE | 2017-03-17 03:41 | DS ---
REASON FOR ADMISSION: This is a 77-year-old female who was admitted to our transitional care unit after total hip replacement at [facility]. COURSE OF HOSPITALIZATION: The patient was admitted to transitional care unit and she was compliant to physical therapy and occupational therapy. The patient was found to have iron-deficiency anemia and she was started on iron and vitamin C. The patient's symptoms slowly improved and patient was discharged home, asked her to continue aspirin 325 mg twice a day and follow up with her primary care physician and Dr. Oliva. FINAL DIAGNOSES: Subacute rehabilitation, status post right total hip replacement; hypothyroidism; hypertension; iron deficiency anemia of chronic blood loss. [facility] MD Jose Martin
== END 2017-03-15 10:29 | disposition home or self-care (01) | DRG 560 ==
LOC: H.TCU 23:15
PROVIDERS: ADMIT Internal Medicine; ATTEND Internal Medicine
PROC: F07Z9FZ Gait Training/Functional Ambulation Treatment using Assistive, Adaptive, Supportive or Protective Equipment (ICD-10-PCS; principal; 2017-03-03)
PROC: F08Z4FZ Home Management Treatment using Assistive, Adaptive, Supportive or Protective Equipment (ICD-10-PCS; 2017-03-03)
PROC: F07L6FZ Therapeutic Exercise Treatment of Musculoskeletal System - Lower Back / Lower Extremity using Assistive, Adaptive, Supportive or Protective Equipment (ICD-10-PCS; 2017-03-04)
PROC: 3E0234Z Introduction of Serum, Toxoid and Vaccine into Muscle, Percutaneous Approach (ICD-10-PCS; 2017-03-04)
DX: Z47.1 Aftercare following joint replacement surgery (principal); D62 Acute posthemorrhagic anemia; E86.0 Dehydration; E11.9 Type 2 diabetes mellitus without complications; Z96.641 Presence of right artificial hip joint; E03.9 Hypothyroidism, unspecified; I25.10 Atherosclerotic heart disease of native coronary artery without angina pectoris; Z95.5 Presence of coronary angioplasty implant and graft; Z95.820 Peripheral vascular angioplasty status with implants and grafts; Z87.891 Personal history of nicotine dependence; M16.11 Unilateral primary osteoarthritis, right hip; I10 Essential (primary) hypertension; Z23 Encounter for immunization